=== PATIENT | female | born 1980 | race Caucasian/White ===

== ENCOUNTER 2022-06-27 18:21 | Emergency (ER) | payer MEDICAID ==
[~2022-06-27] VITALS: Ht 157.5 cm; Wt 68.9 kg
[2022-06-27 18:38] VITALS: BP 155/81
[2022-06-27 19:02] LABS: BASOPHILS % (AUTO) 0.4 % (0.0-2.0); EOSINOPHILS % (AUTO) 0.2 % (0.0-4.0); HEMATOCRIT 36.2 % (36-48); HEMOGLOBIN 12.1 g/dL (12.0-16.0); LYMPHOCYTES # (AUTO) 1.8 K/uL (2.5-16.5); LYMPHOCYTES % (AUTO) 15.8 % (20.5-51.1); MEAN CORPUSCULAR HEMOGLOBIN 28 pg (27-31); MEAN CORPUSCULAR HGB CONC 33 g/dL (33-37); MEAN CORPUSCULAR VOLUME 85.2 fL (80-94); MONOCYTES # (AUTO) 0.8 K/uL (0.8-1.0); MONOCYTES % (AUTO) 6.7 % (1.7-9.3); NEUTROPHILS # (AUTO) 8.7 K/uL (1.8-7.7); NEUTROPHILS % (AUTO) 76.9 % (42.2-75.2); PLATELET COUNT (AUTO) 224 K/uL (140-450); RED BLOOD CELL COUNT(AUTO) 4.25 MIL/uL (4.20-5.40); RED CELL DISTRIBUTION WIDTH 13.8 % (11.6-13.7); WHITE BLOOD COUNT (AUTO) 11.2 K/uL (4.8-10.8)
[2022-06-27 19:15] LABS: ALBUMIN 3.9 g/dL (3.4-5.0); ANION GAP 14.1 (8-16); CARBON DIOXIDE 24.1 mmol/L (21-32); CREATININE 0.6 mg/dL (0.6-1.3); POTASSIUM 3.2 mmol/L (3.5-5.1); TOTAL BILIRUBIN 0.7 mg/dL (0.0-1.0)
--- NOTE | 2022-06-27 19:18 | NUR ---
AMBULATED TO BED 3, VOMITTED LIGHT YELLOW FLUID IN EMESIS BAG
[2022-06-27] MEDS ORDERED: NACL 0.9% 1,000 ML IV ONE (20:15)
[2022-06-27] MEDS ORDERED: ONDANSETRON 4 MG/2 ML VIAL IVP ONE (20:15)
--- NOTE | 2022-06-27 21:20 | NUR ---
MEDICATED PER [facility]MDS ORDER , TOLERATED WELL.
[2022-06-27 21:32] LABS: APPEARANCE,URINE CLEAR (CLEAR); BILIRUBIN,URINE NEGATIVE (NEGATIVE); BLOOD, URINE NEGATIVE (NEGATIVE); COLOR,URINE YELLOW (YELLOW); LEUKOCYTE ESTERASE ,URINE NEGATIVE (NEGATIVE); NITRITE, URINE NEGATIVE (NEGATIVE); UGLUCOSE 3+ (NEGATIVE)
--- NOTE | 2022-06-27 22:09 | NUR ---
REPORT RECEIVED FROM JAZIEL TUBBS. PT A/O X4, RESTING IN BED. PT DENIES ANY PAIN/NAUSEA AT THIS TIME
[2022-06-27] MEDS ORDERED: POTASSIUM CHLORIDE 10 MEQ TABER PO ONE (22:15)
[2022-06-27] MEDS ORDERED: NACL 0.9% 500 ML IV ONE (22:15)
--- NOTE | 2022-06-27 23:10 | NUR ---
500ML BOLUS COMPLETED, PT REPORTS NOT FEELING WELL AND FEELING DIZZY. DR HEREDIA AWARE.
[2022-06-27] MEDS ORDERED: ACAR100T1 PO (23:33)
[2022-06-27] MEDS ORDERED: METO25TA PO (23:33)
[2022-06-27] MEDS ORDERED: ESK300 PO (23:33)
[2022-06-27] MEDS ORDERED: ZOLP10TA1 PO (23:33)
[2022-06-27] MEDS ORDERED: BENZ-315 PO (23:33)
[2022-06-27] MEDS ORDERED: ICOS0.5C PO (23:33)
[2022-06-27] MEDS ORDERED: TRAZ-343 PO (23:33)
[2022-06-27] MEDS ORDERED: DAPA10TA PO (23:33)
--- NOTE | 2022-06-27 23:39 | NUR ---
REPORT GIVEN TO LOVELY TUBBS, TRANSFER OF TIME AT THIS TIME
[2022-06-27] MEDS ORDERED: CHOL100011 PO (23:48)
[2022-06-27] MEDS ORDERED: METF1TAB5 PO (23:48)
[2022-06-27] MEDS ORDERED: B CO1TAB7 PO (23:48)
[2022-06-27] MEDS ORDERED: AMLO2.5T PO (23:48)
[2022-06-27] MEDS ORDERED: ATOR10TA PO (23:48)
[2022-06-27] MEDS ORDERED: ASPI-1856 PO (23:48)
[2022-06-27] MEDS ORDERED: [UNRECOGNIZED DRUG - CODE] PO (23:48)
--- NOTE | 2022-06-28 00:02 | NUR ---
Patient resting in bed, A/Ox4, chest rise and fall symmetrical, no c/o pain or s/s of distress, patient on monitor.
--- NOTE | 2022-06-28 02:39 | NUR ---
Patient resting in bed, A/Ox4, chest rise and fall symmetrical, no c/o pain or s/s of distress, patient on monitor.
--- NOTE | 2022-06-28 04:20 | NUR ---
Patient resting in bed, A/Ox4, chest rise and fall symmetrical, no c/o pain or s/s of distress, patient on monitor.
--- NOTE | 2022-06-28 06:00 | NUR ---
Patient resting in bed, A/Ox4, chest rise and fall symmetrical, no c/o pain or s/s of distress, patient on monitor.
--- NOTE | 2022-06-28 06:06 | NUR ---
Patient to be transferred to [facility]. Is being transferred due to Insurance. Receiving facility has accepting physician and available space. ER physician has signed transfer form. Patient or responsible alliance party has agreed to transfer and signed form. Patient belongings inventoried and will be sent with patient. Copy of nursing notes, lab reports, EKG, Physicians Orders and X-rays to be sent with patient. Report called to Portia TUBBS at receiving facility. Portia TUBBS verbalized understanding of report, no further questions. [facility] has been called for transfer. ETA is 0600 hrs.
--- NOTE | 2022-06-28 07:15 | NUR ---
Change of shift report given to AM shift Nurse Srinath TUBBS. AM shift Nurse Srinath RN verbalized understanding of report, no further questions.
--- NOTE | 2022-06-28 07:57 | NUR ---
Pt complain of nausea and neck pain 3/10. No vomiting, A&O x4, Bp 156/86, HR 106, RR 17, O2 98% in room air, tem 98.6, are waiting for transfer to hospital. ST on CM SR up x 2
--- NOTE | 2022-06-28 08:08 | NUR ---
[facility] AT BEDSIDE
[2022-06-28 08:13] VITALS: BP 136/81
--- NOTE | 2022-06-28 08:20 | NUR ---
pt transferred to [facility] via [facility] ambulance, no ac distress, report to Francisco. all transfer papers given to EMT. all forms signed. report to receiving facility already given by steward/stewardess night nurse.
== END 2022-06-28 08:13 | disposition short-term general hospital (02) ==
LOC: MED 18:21
DX: R11.10 Vomiting, unspecified (principal); E87.1 Hypo-osmolality and hyponatremia; E87.6 Hypokalemia; E86.0 Dehydration; I10 Essential (primary) hypertension; E11.9 Type 2 diabetes mellitus without complications; Z20.822 Contact with and (suspected) exposure to COVID-19; Z79.899 Other long term (current) drug therapy
CPT/HCPCS: 36415; 80053; 81003; 81025; 83690; 85025; 87426; 93005; 96361; 96374; 99285; J2405; J7030